=== PATIENT | female | born 1985 | race Caucasian/White ===

== ENCOUNTER 2019-01-23 20:11 | Emergency (ER) | payer BC ==
[~2019-01-23] VITALS: Ht 162.6 cm; Wt 113.6 kg
[2019-01-23] MEDS ORDERED: VITAMIN D50000 UNIT PO (21:35)
[2019-01-23 22:10] LABS: EOS # 0.2 (0.04-0.40); EOS % 1.2 % (1.0-5.0); HEMOGLOBIN 14.1 g/dL (12.5-16.0); LYMPH# 2.7 (1.50-4.00); MEAN CELL VOLUME 91 fl (78-100); MEAN CORPUSCULAR HEMOGLOBIN 30 pg (27-31); MEAN CORPUSCULAR HGB CONC 33 g/dL (33-37); MEAN PLATELET VOLUME 11.2 fl (7.4-10.4); MONO # 1.3 (0.20-0.80); PLATELET COUNT 328 K/mm3 (130-400); RED BLOOD COUNT 4.74 M/mm3 (4.10-5.30); RED CELL DISTRIBUTION WIDTH 13.6 % (11.5-14.5); WHITE BLOOD COUNT 17.1 K/mm3 (4.8-10.8)
[2019-01-23 22:14] LABS: POTASSIUM 3.6 mmol/L (3.5-5.1)
[2019-01-23 22:15] LABS: CALCIUM 9.4 mg/dL (8.3-10.5)
[2019-01-23 22:16] LABS: NEU # 12.7 (1.40-6.50); TOTAL PROTEIN 7.3 g/dL (6.4-8.3)
[2019-01-23 22:18] LABS: TOTAL BILIRUBIN 0.2 mg/dL (0.2-1.2)
[2019-01-23 22:30] LABS: URINE APPEARANCE CLOUDY; URINE BILIRUBIN NEGATIVE (NEGATIVE); URINE BLOOD 250 ery/uL (NEGATIVE); URINE COLOR YELLOW; URINE GLUCOSE NEGATIVE (NEGATIVE); URINE KETONE NEGATIVE (NEGATIVE); URINE LEUKOCYTE ESTERASE 1+ (NEGATIVE); URINE NITRATE POSITIVE (NEGATIVE); URINE PROTEIN(semi-quant) 2+ mg/dL (NEGATIVE); URINE UROBILINOGEN NORMAL (NORMAL); URINE WBC >50 /hpf (0-3)
[2019-01-24] MEDS ORDERED: CIPRO500 M1 PO (00:51)
[2019-01-24] MEDS ORDERED: PERCOCET 325 MG1 TA2 PO (00:51)
[2019-01-24 00:52] LABS: CLUE CELLS PRESENT (Not Observd)
[2019-01-24] MEDS ORDERED: ZOFRAN ODT4 MG PO (01:39)
[2019-01-24 01:41] VITALS: BP 132/88
== END 2019-01-24 01:41 | disposition home or self-care (01) ==
LOC: ED 20:11
PROVIDERS: Nurse Practitioner Family
DX: N20.0 Calculus of kidney (principal); N30.01 Acute cystitis with hematuria; K80.70 Calculus of gallbladder and bile duct without cholecystitis without obstruction; N83.201 Unspecified ovarian cyst, right side; F17.210 Nicotine dependence, cigarettes, uncomplicated; Z90.49 Acquired absence of other specified parts of digestive tract
CPT/HCPCS: J1885; J2270; J7030; Q0111; Q9967